=== PATIENT | female | born 1965 | race American Indian/Alaskan Native ===

== ENCOUNTER 2018-05-25 16:00 | Emergency (ER) | payer BC ==
[2018-05-25 16:11] VITALS: BP 149/61
[2018-05-25] MEDS ORDERED: TORADOL IM ONE (16:58)
[2018-05-25] MEDS ORDERED: ULTRAM PO ONE (16:58)
--- NOTE | 2018-05-25 17:15 | Emergency Department Report ---
ED Lower Extremity HPI - General Chief Complaint: Extremity Injury, Lower Stated Complaint: RT FOOT PAIN Time Seen by Provider: 05/25/18 16:41 Source: patient Mode of arrival: Ambulatory Limitations: No Limitations - History of Present Illness Initial Comments: 52-year-old female with a past medical history of hypertension presents to the hospital with complaints of nontraumatic right medial foot pain 3 days. 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 No trauma fall reported. Patient denies fever. Pain is 10/ 10 in intensity and worse with palpation, induration, and movement. Previous injury or foot pain. Patient tried Biofreeze and Aleve without any relief. - Related Data Previous Rx's Medication Instructions Recorded Last Taken Type HYDROcodone/APAP 5-325 [[place] 1 each PO Q6HR PRN #20 tablet 05/25/18 Unknown Rx 5/325] Ibuprofen [Motrin] 800 mg PO Q8HR PRN #30 tablet 05/25/18 Unknown Rx Allergies Allergy/AdvReac Type Severity Reaction Status Date / Time No Known Allergies Allergy Verified 05/25/18 16:11 ED Review of Systems ROS: Stated complaint: RT FOOT PAIN Other details as noted in HPI Comment: All other systems reviewed and negative ED Past Medical Hx - Past Medical History Previous Medical History?: Yes Hx Hypertension: Yes - Surgical History Past Surgical History?: No - Social History Smoking Status: Never Smoker Substance Use Type: None - Medications Home Medications: Home Medications Medication Instructions Recorded Confirmed Last Taken Type HYDROcodone/APAP 5-325 [[place] 1 each PO Q6HR PRN #20 tablet 05/25/18 Unknown Rx 5/325] Ibuprofen [Motrin] 800 mg PO Q8HR PRN #30 tablet 05/25/18 Unknown Rx ED Physical Exam - General Limitations: No Limitations - Other Other exam information: General: No limitations, patient is alert in no acute distress Head exam: Atraumatic, normocephalic Eyes exam: Normal appearance ENT: Moist mucous membrane, normal oropharynx Neck exam: Normal inspection, full range of motion Respiratory exam: Clear to auscultation bilateral, no wheezes, rales, crackles Cardiovascular: Normal rate and rhythm, normal heart sounds Abdomen: Soft, nondistended, and nontender, with normal bowel sounds, no rebound, or guarding Extremity: Full range of motion normal inspection no deformity. Patient has medial right foot pain at the heel extending towards the ankles and proximal to Achilles tendon. no tenderness to malleoli. No warmth or erythema. 2+ DP pulse Back: Normal Inspection, full range of motion, no tenderness Neurologic: Alert, oriented x3, cranial nerves intact, no motor or sensory deficit Psychiatric: normal affect, normal mood Skin: Warm, dry, intact ED Course Vital Signs 05/25/18 05/25/18 05/25/18 16:08 17:19 17:21 Temperature 98.1 F Pulse Rate 79 Respiratory 18 18 18 Rate Blood Pressure 149/61 O2 Sat by Pulse 100 Oximetry 05/25/18 17:59 Temperature Pulse Rate Respiratory 18 Rate Blood Pressure O2 Sat by Pulse Oximetry ED Lower Extremity MDM - Radiology Data Radiology results: report reviewed FINAL REPORT PROCEDURE: Right foot. TECHNIQUE: Three portable views. HISTORY: nontraumatic medial heel pain COMPARISON: No prior studies are available for comparison. FINDINGS: The bones appear intact without fracture or dislocation. The joint spaces appear satisfactory. The soft tissues are unremarkable. There is calcification/ossification in the distal Achilles tendon. IMPRESSION: No significant abnormality. - Medical Decision Making Calcified Achilles tendon No fracture Improving with tramadol and Toradol f/u rec - Differential Diagnosis fracture, contusion, sprain Critical Care Time: No Critical care attestation.: If time is entered above; I have spent that time in minutes in the direct care of this critically ill patient, excluding procedure time. ED Disposition Clinical Impression: Calcific Achilles tendinitis, Pain of right heel Disposition: - TO HOME OR SELFCARE Is pt being admited?: No Does the pt Need Aspirin: No Condition: Stable Instructions: Tendinitis (ED) Additional Instructions: Take the medication as prescribed. Follow up with your doctor or the doctors provided. Return if symptoms worsen as indicated by your discharge instructions Prescriptions: HYDROcodone/APAP 5-325 [[place] 5/325] 1 each PO Q6HR PRN #20 tablet PRN Reason: Pain , Severe (7-10) Ibuprofen [Motrin] 800 mg PO Q8HR PRN #30 tablet PRN Reason: Pain, Moderate (4-6) Referrals: [facility] [Provider Group] - 3-5 Days (Primary care clinic) RITA TOVAR DPM [Staff Physician] - 3-5 Days (Podiatry) REE CORTEZ MD [Staff Physician] - 3-5 Days (Podiatry) LUPE COSTELLO MD [Staff Physician] - 3-5 Days (Orthopedic surgeon) Time of Disposition: 18:30
--- NOTE | 2018-05-25 17:58 | XRay Report ---
FINAL REPORT PROCEDURE: Right foot. TECHNIQUE: Three portable views. HISTORY: nontraumatic medial heel pain COMPARISON: No prior studies are available for comparison. FINDINGS: The bones appear intact without fracture or dislocation. The joint spaces appear satisfactory. The soft tissues are unremarkable. There is calcification/ossification in the distal Achilles tendon. IMPRESSION: No significant abnormality.
== END 2018-05-25 19:17 | disposition home or self-care (01) ==
LOC: ED 16:00
DX: M76.61 Achilles tendinitis, right leg (principal); M65.261 Calcific tendinitis, right lower leg; I10 Essential (primary) hypertension
CPT/HCPCS: 73630; 96372; 99283; J1885

== ENCOUNTER 2019-02-02 16:27 | Emergency (ER) | payer BC, OTHER ==
[2019-02-02 16:36] VITALS: BP 157/73
--- NOTE | 2019-02-02 16:38 | Emergency Department Report ---
Blank Doc - Documentation Documentation: 53 y/o famale presents to ED c/o spontaneous pain instep and heel no blunt tra riccardo. Plan evaluate for [place]ag[place] defromity, spuring and bursitis.
--- NOTE | 2019-02-02 17:27 | Emergency Department Report ---
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 Complaint: foot injury -: Gradual, week(s) (1) Injury: Foot: Right Type of Injury: unknown Place: work Severity: moderate Severity scale (0 -10): 6 Improves With: nothing Worsens With: nothing Context: other Associated Symptoms: ambulatory - Related Data Previous Rx's Medication Instructions Recorded Last Taken Type HYDROcodone/APAP 5-325 [[place] 1 each PO Q6HR PRN #20 tablet 05/25/18 Unknown Rx 5/325] Ibuprofen [Motrin] 800 mg PO Q8HR PRN #30 tablet 05/25/18 Unknown Rx Naproxen [Naprosyn] 500 mg PO BID #20 tablet 02/02/19 Unknown Rx Allergies Allergy/AdvReac Type Severity Reaction Status Date / Time No Known Allergies Allergy Verified 05/25/18 16:11 ED Review of Systems ROS: Stated complaint: FEET PAIN Other details as noted in HPI Comment: All other systems reviewed and negative ED Past Medical Hx - Past Medical History Previous Medical History?: Yes Hx Hypertension: Yes - Surgical History Past Surgical History?: No - Social History Smoking Status: Never Smoker Substance Use Type: None - Medications Home Medications: Home Medications Medication Instructions Recorded Confirmed Last Taken Type HYDROcodone/APAP 5-325 [[place] 1 each PO Q6HR PRN #20 tablet 05/25/18 Unknown Rx 5/325] Ibuprofen [Motrin] 800 mg PO Q8HR PRN #30 tablet 05/25/18 Unknown Rx Naproxen [Naprosyn] 500 mg PO BID #20 tablet 02/02/19 Unknown Rx ED Physical Exam - General Limitations: No Limitations General appearance: alert, in no apparent distress - Head Head exam: Present: atraumatic, normocephalic - Eye Eye exam: Present: normal appearance, PERRL - Neck Neck exam: Present: normal inspection, full ROM - Extremities Exam Extremities exam: Present: full ROM, other (tenderness, mild erythema overlying a small area of the posterolateral heel.). Absent: normal inspection - Neurological Exam Neurological exam: Present: alert, oriented X3 - Psychiatric Psychiatric exam: Present: normal affect, normal mood - Skin Skin exam: Present: warm, dry, intact ED Course Vital Signs 02/02/19 16:34 Temperature 97.8 F Pulse Rate 82 Respiratory 16 Rate Blood Pressure 157/73 [Left] O2 Sat by Pulse 100 Oximetry ED Lower Extremity MDM - Radiology Data Radiology results: image reviewed interpreted by me: heel spur - Medical Decision Making presents with heel pain exam as noted heel spur on imaging fu podiatry - Differential Diagnosis spur, cellulitis, unlikely fx Critical care attestation.: If time is entered above; I have spent that time in minutes in the direct care of this critically ill patient, excluding procedure time. ED Disposition Clinical Impression: Heel spur Qualifiers: Laterality: right Qualified Code(s): M77.31 - Calcaneal spur, right foot Disposition: TO HOME OR SELFCARE Is pt being admited?: No Condition: Good Instructions: Plantar Fasciitis (ED) Prescriptions: Naproxen [Naprosyn] 500 mg PO BID #20 tablet Referrals: RITA TOVAR DPM [Staff Physician] - 3-5 Days Time of Disposition: 18:09
--- NOTE | 2019-02-02 18:06 | XRay Report ---
PROCEDURE: XR ANKLE 3+V RT TECHNIQUE: Right ankle 3 views HISTORY: spontanous foot pain COMPARISONS: FINDINGS: Plantar calcaneal enthesophyte noted. There is enthesopathy at the insertion of the Achilles tendon. Joint spaces are within normal limits. No acute fracture is identified. No dislocation seen. No lytic bony changes identified. IMPRESSION: Heel spur. Enthesopathy at the insertion of the Achilles tendon. This document is electronically signed by Niraj Jaquez MD., Feb 02 2019 06:04:38 PM ET
--- NOTE | 2019-02-02 18:29 | XRay Report ---
PROCEDURE: XR FOOT 3+V RT TECHNIQUE: 4 views of the right foot HISTORY: pain to foot and ankle COMPARISONS: FINDINGS: There is cortical irregularity at the base of the proximal phalanx second toe consistent with fractur e likely acute but could be chronic. Noted is plantar calcaneal enthesophyte there is an esophageal t he at the insertion of the Achilles tendon. IMPRESSION: Cortical irregularity at the base second phalanx of the fourth toe which may be acute versus chronic fracture. Please correlate clinically. Heel spur. Enthesopathy at the insertion of the Achilles tendon. This document is electronically signed by Niraj Jaquez MD., Feb 02 2019 06:26:54 PM ET
== END 2019-02-02 18:42 | disposition home or self-care (01) ==
LOC: ED 16:27
DX: M77.31 Calcaneal spur, right foot (principal); I10 Essential (primary) hypertension
CPT/HCPCS: 99283

== ENCOUNTER 2019-05-17 11:16 | Emergency (ER) | payer OTHER ==
--- NOTE | 2019-05-17 11:28 | Event Note ---
ED Screening Note ED Screening Note: r foot pain for 1 week thinks she rolled it otc not working pmh htn on meds This initial assessment/diagnostic orders/clinical plan/treatment(s) is/are subject to change based on patients health status, clinical progression and re- assessment by fellow clinical providers in the ED. Further treatment and workup at subsequent clinical providers discretion. Patient/guardian urged not to elope from the ED as their condition may be serious if not clinically assessed and managed. Initial orders include: xray foot
--- NOTE | 2019-05-17 12:15 | XRay Report ---
RIGHT FOOT 4 VIEWS INDICATION / CLINICAL INFORMATION: Right lateral foot pain. COMPARISON: 02/02/2019. FINDINGS: BONES / JOINT(S): The previously described fracture involving the base of the proximal phalanx of the second toe has almost completely healed. There is no evidence of acute fracture, dislocation or dest ructive lesion. There are mild degenerative changes. There is a small to moderate plantar calcaneal s pur. SOFT TISSUES: Extensive heterotopic ossification in the distal Achilles tendon is stable. Mild locali zed soft tissue swelling involving the dorsum of the midfoot is a new finding. No cause is seen. ADDITIONAL FINDINGS: None. IMPRESSION: 1. Mild soft tissue swelling involving the dorsum the midfoot is new. No cause is seen. 2. Progressive healing of the previously described fracture involving the base of the proximal phalan x of the second toe. Signer Name: Jagjit Mccann MD Signed: 05/17/2019 12:11 PM Workstation Name: [id number]
[2019-05-17] MEDS ORDERED: NORCO 5/325 PO STA (12:23)
--- NOTE | 2019-05-17 12:23 | Emergency Department Report ---
ED Lower Extremity HPI - General Chief Complaint: Extremity Injury, Lower Stated Complaint: RT FOOT PAIN/SWELLING Time Seen by Provider: 05/17/19 11:27 Source: patient Mode of arrival: Wheelchair Limitations: No Limitations - Related Data Previous Rx's Medication Instructions Recorded Last Taken Type HYDROcodone/APAP 5-325 [[place] 1 each PO Q6HR PRN #20 tablet 05/25/18 Unknown Rx 5/325] Ibuprofen [Motrin] 800 mg PO Q8HR PRN #30 tablet 05/25/18 Unknown Rx Naproxen [Naprosyn] 500 mg PO BID #20 tablet 02/02/19 Unknown Rx Ketorolac [Toradol] 10 mg PO Q6H PRN #14 tablet 05/17/19 Unknown Rx Allergies Allergy/AdvReac Type Severity Reaction Status Date / Time No Known Allergies Allergy Verified 05/25/18 16:11 ED Review of Systems ROS: Stated complaint: RT FOOT PAIN/SWELLING Other details as noted in HPI Comment: All other systems reviewed and negative ED Past Medical Hx - Past Medical History Previous Medical History?: Yes Hx Hypertension: Yes - Surgical History Past Surgical History?: No - Social History Smoking Status: Never Smoker Substance Use Type: None - Medications Home Medications: Home Medications Medication Instructions Recorded Confirmed Last Taken Type HYDROcodone/APAP 5-325 [[place] 1 each PO Q6HR PRN #20 tablet 05/25/18 Unknown Rx 5/325] Ibuprofen [Motrin] 800 mg PO Q8HR PRN #30 tablet 05/25/18 Unknown Rx Naproxen [Naprosyn] 500 mg PO BID #20 tablet 02/02/19 Unknown Rx Ketorolac [Toradol] 10 mg PO Q6H PRN #14 tablet 05/17/19 Unknown Rx ED Physical Exam - General Limitations: No Limitations General appearance: alert, in no apparent distress - Head Head exam: Present: atraumatic, normocephalic - Eye Eye exam: Present: normal appearance, PERRL, EOMI Pupils: Present: normal accommodation - ENT ENT exam: Present: mucous membranes moist - Neck Neck exam: Present: normal inspection - Respiratory Respiratory exam: Present: normal lung sounds bilaterally. Absent: respiratory distress - Cardiovascular Cardiovascular Exam: Present: regular rate, normal rhythm. Absent: systolic murmur, diastolic murmur, rubs, gallop - GI/Abdominal GI/Abdominal exam: Present: soft, normal bowel sounds - Extremities Exam Extremities exam: Present: normal inspection, tenderness (disposition and along the base of the fifth metatarsal. Some mild swelling is noted. Capillary refills are brisk. Posterior pulses are 2+ in the dorsalis pedis and posterior tibialis), normal capillary refill. Absent: calf tenderness - Back Exam Back exam: Present: normal inspection - Neurological Exam Neurological exam: Present: alert, oriented X3, CN II-XII intact - Psychiatric Psychiatric exam: Present: normal affect, normal mood - Skin Skin exam: Present: warm, dry, intact, normal color. Absent: rash ED Course Vital Signs 05/17/19 11:26 Temperature 98 F Pulse Rate 93 H Respiratory 20 Rate Blood Pressure 139/93 O2 Sat by Pulse 100 Oximetry Critical care attestation.: If time is entered above; I have spent that time in minutes in the direct care of this critically ill patient, excluding procedure time. ED Disposition Clinical Impression: Foot contusion Disposition: DC- TO HOME OR SELFCARE Is pt being admited?: No Does the pt Need Aspirin: No Condition: Stable Instructions: Foot Contusion (ED), RICE Therapy (ED), Ice Pack Application (ED) Prescriptions: Ketorolac [Toradol] 10 mg PO Q6H PRN #14 tablet PRN Reason: Pain Referrals: RYAN BRAVO MD [Primary Care Provider] - 3-5 Days
[2019-05-17 12:33] VITALS: BP 125/80
== END 2019-05-17 12:34 | disposition home or self-care (01) ==
LOC: ED 11:16
DX: S90.31XA Contusion of right foot, initial encounter (principal); I10 Essential (primary) hypertension; Z79.899 Other long term (current) drug therapy; X58.XXXA Exposure to other specified factors, initial encounter; Y93.89 Activity, other specified; Y92.89 Other specified places as the place of occurrence of the external cause; Y99.8 Other external cause status
CPT/HCPCS: 99283